=== PATIENT | female | born 1930 | race Caucasian/White ===

== ENCOUNTER 2019-04-02 12:32 | Emergency (ER) | payer OTHER | END 2019-04-02 13:08 | disposition home or self-care (01) | LOC: FER 12:32 ==

== ENCOUNTER 2019-07-13 12:54 | Emergency (ER) | payer OTHER ==
--- NOTE | 2019-07-13 13:25 | PDOC ---
Rapid Medical Evaluation Time Seen by Provider: 07/13/19 13:19 Medical Evaluation: Allergies Allergy/AdvReac Type Severity Reaction Status Date / Time No Known Allergies Allergy Unverified 04/02/19 12:34 07/13/19 13:21 Pt presents for a fall. Daughter states that she fell transferring from the couch to commode and fell on her bottom. Denies hitting her head. Pt is not on blood thinners. Daughter is concerned she may be having another urinary tract infection. Admits to dysuria and frequency. Exam: abdomen soft, nontender. Orders: urine, labs Pt to proceed to the ER for further evaluation Discharge Disposition - Diagnosis Dysuria Fall Qualifiers: Encounter type: initial encounter Qualified Code(s): W19.XXXA - Unspecified fall, initial encounter - Referrals - Patient Instructions - Post Discharge Activity
[2019-07-13 13:26] VITALS: BMI 19.5
[2019-07-13 15:17] LABS: ALBUMIN 3.1 g/dl (3.4-5.0); BILIRUBIN,TOTAL 0.5 mg/dL (0.2-1); BLOOD UREA NITROGEN 17.3 mg/dL (7-18); CREATININE 0.8 mg/dL (0.55-1.3); POTASSIUM 4.4 mmol/L (3.5-5.1); TOT PROT 6.8 g/dl (6.4-8.2)
--- NOTE | 2019-07-13 15:26 | PDOC ---
History of Present Illness - General Chief Complaint: Urinary Problem Stated Complaint: FALL/UTI Time Seen by Provider: 07/13/19 13:19 History Source: Family Exam Limitations: Dementia - History of Present Illness Initial Comments: 07/13/19 14:53 89F with a PMH of dementia and frequent UTI's who presents to the ER after having a fall. The patient is with her daughter who helps provide the history. The daughter states that she was taking a nap close by to the patient when she heard the patient fall as she got up from her couch to her commode (2-3 feet away). The daughter does not believe the patient hit her head. The patient has no recollection of the event. Denies active CP, SOB, nausea, vomiting, palpitations, lightheadedness, abdominal pain, back pain, neck pain. Past History - Past Medical History Allergies/Adverse Reactions: Allergies Allergy/AdvReac Type Severity Reaction Status Date / Time No Known Allergies Allergy Unverified 04/02/19 12:34 Home Medications: Ambulatory Orders Donepezil HCl 10 mg PO DAILY 04/02/19 Ergocalciferol [Vitamin D2] 50,000 unit PO DAILY 04/02/19 Tamoxifen Citrate 20 mg PO DAILY 04/02/19 Cephalexin Monohydrate [Keflex -] 500 mg PO BID #14 capsule 07/13/19 Cancer: Yes (BREAST) COPD: Yes HTN: Yes Psychiatric Problems: Yes (DEMENTIA) - Immunization History Immunization Up to Date: Yes - Suicide/Smoking/Psychosocial Hx Smoking History: Never smoked Hx Alcohol Use: No Drug/Substance Use Hx: No Review of Systems - Review of Systems Able to Perform ROS?: No (dementia) *Physical Exam - Vital Signs Last Vital Signs Temp Pulse Resp BP Pulse Ox 98.2 F 70 16 159/78 98 07/13/19 13:22 07/13/19 13:22 07/13/19 13:22 07/13/19 13:22 07/13/19 13:22 - Physical Exam Comments: 07/13/19 15:27 GENERAL: Well developed, well nourished. Awake and alert. No acute distress. HEENT: Normocephalic, atraumatic. Hearing grossly normal. Moist mucous membranes. PERRLA, EOMI. No conjunctival pallor. Sclera are non-icteric. Oropharynx is clear. NECK: Supple. Full ROM. No JVD. No midline tenderness. CARDIOVASCULAR: Regular rate and rhythm. No murmurs, rubs, or gallops. PULMONARY: No evidence of respiratory distress. Lungs clear to auscultation bilaterally. No wheezing, rales or rhonchi. ABDOMINAL: Soft. Non-tender. Non-distended. No rebound or guarding. GENITOURINARY: No CVA tenderness bilaterally. MUSCULOSKELETAL: Normal range of motion at all joints. No bony deformities or tenderness. EXTREMITIES: No cyanosis. No clubbing. No edema. No calf tenderness or swelling. SKIN: Warm and dry. Normal capillary refill. No rashes. No jaundice. NEUROLOGICAL: Alert, awake, appropriate. Cranial nerves 2-12 grossly intact. Normal speech. Gait is normal without ataxia but ambulates w/ walker. PSYCHIATRIC: Cooperative. Good eye contact. Appropriate mood and affect. ED Treatment Course - LABORATORY CBC & Chemistry Diagram: 07/13/19 17:00 07/13/19 14:18 - ADDITIONAL ORDERS Additional order review: 07/13/19 14:18 RBC Cancelled MCV Cancelled MCHC Cancelled RDW Cancelled MPV Cancelled Neutrophils % Cancelled Lymphocytes % Cancelled Monocytes % Cancelled Eosinophils % Cancelled Basophils % Cancelled - RADIOLOGY Radiology Studies Ordered: Category Date Time Status HEAD CT WITHOUT CONTRAST [CT] Stat CT Scan 07/13/19 14:53 Ordered PELVIS [RAD] Stat Radiology 07/13/19 14:35 Ordered Medical Decision Making - Medical Decision Making 07/13/19 15:28 89F with a PMH of dementia and frequent UTI's who presents for a fall likely 2/ 2 unsteady gait. Pt's daughter noted that the patient is complaining of dysuria. Will obtain urine and labs and reassess. 07/13/19 18:29 UA shows nitrite positive UTI. Pelvic XR preliminary read negative, pending official read. 07/13/19 18:32 Official read of pelvis and HCT negative. Will d/c with abx and PCP f/u. *DC/Admit/Observation/Transfer Diagnosis at time of Disposition: Dysuria Fall Qualifiers: Encounter type: initial encounter Qualified Code(s): W19.XXXA - Unspecified fall, initial encounter - Discharge Dispostion Disposition: HOME Condition at time of disposition: Stable Decision to Admit order: No - Prescriptions Prescriptions: Cephalexin Monohydrate [Keflex -] 500 mg PO BID #14 capsule - Referrals Referrals: [facility] [place] [Provider Group] - Patient Instructions Printed Discharge Instructions: Urinary Tract Infection Additional Instructions: Your ER visit is not complete until your follow up with your primary care physician. Please follow up with your primary care physician in 1-2 days. Please return to the ER if you have any signs or symptoms of chest pain, shortness of breath, uncontrollable fever, chills, nausea, vomiting, numbness, tingling, or weakness in any part of your body, changes in vision, or slurred speech. Please take your medications as prescribed. Please return to the ER if symptoms persist, worsen, or new symptoms arise. - Post Discharge Activity
--- NOTE | 2019-07-13 15:29 | PDOC ---
Attending Attestation - Resident Resident Name: Jimmy Zhang - ED Attending Attestation I have performed the following: I have examined & evaluated the patient, The case was reviewed & discussed with the resident, I agree w/resident's findings & plan, Exceptions are as noted - HPI HPI: 07/13/19 15:29 89 F with h/o frequent UTIs, dementia, presenting to ED with fall. Pt was transferring from couch to commode when she fell onto her behind. Denies headstrike/LOC. Daughter was nearby when it occurred and states pt was awake and alert at time of fall. She notes that pt tends to fall more frequently when she has UTIs. No fevers noted at home. - Physicial Exam PE: 07/13/19 15:35 GENERAL: Awake, alert, in no acute distress. HEAD: No signs of trauma EYES: PERRLA, EOMI, sclera anicteric, conjunctiva clear ENT: Auricles normal inspection, hearing grossly normal, nares patent, oropharynx clear without exudates. Moist mucosa NECK: Nontender, no stepoffs, Normal ROM, supple, no lymphadenopathy, JVD, or masses LUNGS: Breath sounds equal, clear to auscultation bilaterally. No wheezes, and no crackles HEART: Regular rate and rhythm, normal S1 and S2, no murmurs, rubs or gallops ABDOMEN: Soft, nontender, normoactive bowel sounds. No guarding, no rebound. No masses EXTREMITIES: Normal range of motion, no edema. No clubbing or cyanosis. No cords, erythema, or tenderness NEUROLOGICAL: Cranial nerves II through XII intact. 5/5 strength and sensation in all extremities, Normal speech SKIN: Warm, Dry, normal turgor, no rashes or lesions noted. - Medical Decision Making 07/13/19 15:35 89 F with mechanical fall while transferring to commode. - CT head - UA
[2019-07-13 17:22] LABS: BASO % 0.4 % (0-2.0); EOS % 0.7 % (0-4.5); HEMATOCRIT 40.5 % (32.4-45.2); HEMOGLOBIN 13.2 GM/dL (10.7-15.3); LYMPH % 18.7 % (8-40); MCH 32.5 pg (25.7-33.7); MCHC 32.8 g/dl (32.0-36.0); MEAN CELL VOLUME 99.1 fl (80-96); MEAN PLT VOLUME 7.9 fl (7.5-11.1); MONO % 7.7 % (3.8-10.2); NEUT % 72.5 % (42.8-82.8); PLATELET COUNT 158 K/MM3 (134-434); RBC 4.08 M/mm3 (3.60-5.2); WHITE BLOOD COUNT 9.8 K/mm3 (4.0-10.0)
[2019-07-13 18:01] LABS: PH,URINE 5.5 (5.0-8.0); URINE APPEARANCE TURBID; URINE BILIRUBIN NEGATIVE (NEGATIVE); URINE COLOR YELLOW; URINE GLUCOSE (UA) NEGATIVE (NEGATIVE); URINE PROTEIN TRACE (NEGATIVE)
[2019-07-13 18:02] LABS: URINE LEUK ESTERASE 1+ (NEGATIVE); URINE NITRITE POSITIVE (NEGATIVE)
[2019-07-13] MEDS ORDERED: CEPHALEXIN MONOHYDRATE 500 MG CAPSULE (UD) PO ONE (18:30)
[2019-07-13] MEDS ORDERED: CEPHALEXIN MONOHYDRATE 500 MG CAPSULE (UD) ONE (18:47)
[2019-07-13 18:54] VITALS: BP 129/68; PULSE 88; TEMP 98.5
[2019-07-13 20:17] LABS: EPI CELLS 6.4 /HPF (0-5/HPF); HYALINE CASTS 14 /lpf (0-8); URINE BACTERIA 5921.8 /hpf (NEGATIVE); URINE KETONE 2+ (NEGATIVE); URINE RBC 12 /hpf (0-4); URINE WBC 34 /hpf (0-5)
[2019-07-13 20:32] LABS: URINE CRYSTALS CALCIUM OXALATE /hpf
--- NOTE | 2019-07-14 14:36 | EKG ---
Test Reason : Blood Pressure : / mmHG Vent. Rate : 062 BPM Atrial Rate : 062 BPM P-R Int : 160 ms QRS Dur : 072 ms QT Int : 482 ms P-R-T Axes : 054 047 035 degrees QTc Int : 489 ms SINUS RHYTHM WITH MARKED SINUS ARRHYTHMIA NO PREVIOUS ECGS AVAILABLE Confirmed by TAY LONGORIA MD ([id number]) on 07/14/2019 2:36:21 PM Referred By: Confirmed By:TAY LONGORIA MD
== END 2019-07-13 18:54 | disposition home or self-care (01) ==
LOC: SUPCPDRO 12:54 → JER 12:54
DX: N39.0 Urinary tract infection, site not specified (principal); W08.XXXA Fall from other furniture, initial encounter; Y93.89 Activity, other specified; Y92.038 Other place in apartment as the place of occurrence of the external cause; Y99.8 Other external cause status; Z87.440 Personal history of urinary (tract) infections; F03.90 Unspecified dementia, unspecified severity, without behavioral disturbance, psychotic disturbance, mood disturbance, and anxiety; J44.9 Chronic obstructive pulmonary disease, unspecified; Z85.3 Personal history of malignant neoplasm of breast
CPT/HCPCS: 36415; 70450-TC; 72170-TC-FY; 80053; 81003; 85025; 87086; 87186; 93005; 93010; 99283-25